=== PATIENT | female | born 1995 | race Caucasian/White ===

== ENCOUNTER 2018-05-24 10:46 | Emergency (ER) | payer OTHER ==
[~2018-05-24] VITALS: Ht 157.5 cm; Wt 82.6 kg
[2018-05-24 10:56] VITALS: BP 112/70
--- NOTE | 2018-05-24 10:56 | NUR ---
patient ambulated to bed#11 with nurse and family
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
[2018-05-24 11:48] VITALS: BP 112/70
--- NOTE | 2018-05-24 11:49 | NUR ---
Patient discharged with v/s stable. Written and verbal after care instructions given and explained. Patient verbalized understanding. Ambulatory with [facility]. All questions addressed prior to discharge. Advised to follow up with PMD.
== END 2018-05-24 11:49 | disposition home or self-care (01) ==
LOC: MED 10:46
DX: M79.672 Pain in left foot (principal)
CPT/HCPCS: 73610; 73630; 99284; Q0092